=== PATIENT | male | born 1945 | race Caucasian/White ===

== ENCOUNTER 2016-12-20 09:03 | Emergency (ER) | payer OTHER ==
[~2016-12-20] VITALS: Ht 177.8 cm; Wt 89.7 kg
[~2016-12-20 09:03] MED LIST: ATORVASTATIN CA10 MG PO; B COMPLETE1 EACH PO; COUMADIN2.5 MG PO; COUMADIN5 MG PO; COZAAR50 MG PO; DILAUDID2 MG PO; FIBERCON625 MG PO; FLOMAX0.4 MG PO; MEN'S MULTI-VI1 EACH PO; PERCOCET 5/31 TABLET PO; PROGRAF1 MG PO; PROTONIX40 MG PO; STRESS FORMULA1 EAC1 PO; VITAMIN D31000 UNI2 PO; WARFARIN SODIU2.5 MG PO; WARFARIN SODIUM5 MG PO; ZOFRAN4 MG PO
[2016-12-20 09:59] LABS: HEMATOCRIT 44.4 % (38.0-50.0); MCH 29.9 PG (29.0-34.0); MCHC 33.6 G/DL (30.0-36.0); MCV 89.2 FL (86-99); MEAN PLAT.VOLUME 8.9 uM^3 (9.0-12.4); PLATELET COUNT 224 K/uL (156-360); RBC DIS.WIDTH-CV 13.5 % (11.8-14.6); RBC DIS.WIDTH-SD 44.3 % (39-53); RED BLOOD COUNT 4.98 M/uL (4.00-5.50)
[2016-12-20 10:05] LABS: INTER. NORMALIZED RATIO 3.3; PROTHROMBIN TIME 38.6 SEC (10.2-12.9)
[2016-12-20 10:07] LABS: PTT 35.7 SEC (25-37)
[2016-12-20 10:10] LABS: CHLORIDE 108 mEq/L (99-109); POTASSIUM 4.6 mEq/L (3.7-5.4); SODIUM 140 mEq/L (136-147)
[2016-12-20 10:11] LABS: GLUCOSE 102 mg/dL (70-99)
[2016-12-20 10:13] LABS: ANION GAP 6 MEQ/L (2-14)
[2016-12-20 10:15] LABS: GFR ESTIMATE (CALCULATED) > 59 mL/min/
[2016-12-20 10:16] LABS: UREA NITROGEN (BUN) 18 mg/dL (9-23)
[2016-12-20 11:52] VITALS: BP 124/79
== END 2016-12-20 11:53 | disposition home or self-care (01) ==
LOC: EME 09:03
PROVIDERS: Nurse Practitioner Family
DX: S01.81XA Laceration without foreign body of other part of head, initial encounter (principal); W22.09XA Striking against other stationary object, initial encounter; Z79.01 Long term (current) use of anticoagulants; Z23 Encounter for immunization; Z94.4 Liver transplant status; I10 Essential (primary) hypertension; E78.5 Hyperlipidemia, unspecified; K21.9 Gastro-esophageal reflux disease without esophagitis; Z86.718 Personal history of other venous thrombosis and embolism; Z87.891 Personal history of nicotine dependence; Z88.6 Allergy status to analgesic agent
CPT/HCPCS: 80048; 85027; 85610; 85730; 99281; 99284